=== PATIENT | male | born 1960 | race Caucasian/White ===

== ENCOUNTER 2016-11-12 05:24 | Inpatient (IN) | payer MEDICAID ==
[~2016-11-12] VITALS: Ht 177.8 cm; Wt 92.5 kg
[2016-11-12] MEDS ORDERED: BUSP15 PO (05:42)
[2016-11-12] MEDS ORDERED: ALBU8HFA IH (05:42)
[2016-11-12] MEDS ORDERED: METO25 PO (05:42)
[2016-11-12] MEDS ORDERED: MIRT15 PO (05:42)
[2016-11-12] MEDS ORDERED: INSLAN SQ (05:42)
[2016-11-12] MEDS ORDERED: PARO10TA89 PO (05:42)
[2016-11-12] MEDS ORDERED: ENAL5 PO (05:42)
[2016-11-12 05:43] LABS: GLUCOSE,POINT OF CARE 233 MG/DL (70-110)
[2016-11-12 06:20] LABS: BASOPHILS # (AUTO) 0.02 K/uL (0.00-0.20); BASOPHILS % (AUTO) 0.2 % (0.0-2.0); EOSINOPHILS # (AUTO) 0.02 K/uL (0.00-0.70); EOSINOPHILS % (AUTO) 0.22 % (1.0-6.0); HEMATOCRIT 38.6 % (41-53); HEMOGLOBIN 13.2 g/dL (13.5-17.5); LYMPHOCYTES # (AUTO) 0.9 K/uL (1.0-4.8); LYMPHOCYTES % (AUTO) 8.2 % (22.0-44.0); MEAN CORPUSCULAR HEMOGLOBIN 32.4 pg (26.0-34.0); MEAN CORPUSCULAR HGB CONC 34.2 G/dL (31.0-37.0); MEAN CORPUSCULAR VOLUME 95 fL (80-100); MONOCYTES # (AUTO) 0.5 K/uL (0.1-1.0); MONOCYTES % (AUTO) 4.4 % (2.0-9.0); PLATELET COUNT (AUTO) 260 K/uL (150-450); RED BLOOD CELL COUNT(AUTO) 4.07 MIL/uL (4.50-5.90); RED CELL DISTRIBUTION WIDTH 14.6 % (11.5-14.5); WHITE BLOOD COUNT (AUTO) 10.3 K/uL (4.5-11.0)
[2016-11-12 06:29] LABS: ANION GAP 8 mmol/L (8-16); CALCIUM, TOTAL 8.3 mg/dL (8.8-10.5); CARBON DIOXIDE 27 mmol/L (22-29); CHLORIDE 102 mmol/L (98-107); CREATININE 0.94 mg/dL (0.60-1.30); GLOMERULAR FILTR. RATE CALC > 60 mL/min (>60); POTASSIUM 4.5 mmol/L (3.5-5.1); SODIUM SERUM 137 mmol/L (136-145); UREA NITROGEN, BLOOD 14 mg/dL (7-18)
[2016-11-12 06:35] LABS: ALANINE AMINOTRANSFERASE 30 U/L (12-78); ALBUMIN 3.6 g/dL (3.4-5.0); ASPARTATE AMINOTRANSFERASE 21 U/L (15-37); BILIRUBIN,TOTAL 0.5 mg/dL (0.1-1.0); TOTAL PROTEIN, SERUM 7.1 g/dL (6.4-8.2)
[2016-11-12] MEDS ORDERED: IPRATROPIUM BROMIDE 0.5 MG/2.5 ML NEB SOLUTION NEB ONE (08:15)
[2016-11-12] MEDS ORDERED: ALBUTEROL SULFATE 2.5 MG/0.5 ML NEB SOLUTION NEB ONE (08:15)
[2016-11-12] MEDS ORDERED: ZOLPIDEM TARTRATE 10 MG TABLET PO PRN (08:45)
[2016-11-12] MEDS ORDERED: HALOPERIDOL 5 MG TABLET PO PRN (08:45)
[2016-11-12] MEDS ORDERED: PARoxetine HCL 20 MG TABLET PO SCH (09:00)
[2016-11-12] MEDS: BusPIRone HCL 15 MG TABLET PO SCH ×2 (09:09→23:00)
[2016-11-12 09:50] LABS: CHOL/HDL RATIO 2.1 (4.2-7.3)
[2016-11-12 20:45] VITALS: BP 170/91
[2016-11-12] MEDS: MIRTAZAPINE 15 MG TABLET PO SCH (22:00)
[2016-11-12] MEDS ORDERED: DEXTROSE 50%-WATER 25 GM/50 ML SYRINGE IVP PRN (22:30)
[2016-11-12] MEDS ORDERED: ALBUTEROL SULFATE HFA 90 MCG/PUFF 8 GM INHALER IH PRN (22:30)
[2016-11-13] MEDS: ENALAPRIL MALEATE 5 MG TABLET PO SCH (07:45)
[2016-11-13] MEDS: BusPIRone HCL 15 MG TABLET PO SCH (07:45)
[2016-11-13] MEDS: MetFORMIN HCL 850 MG TABLET PO SCH ×3 (07:45→17:43)
[2016-11-13] MEDS: PARoxetine HCL 10 MG TABLET PO SCH (07:45)
[2016-11-13] MEDS: METOPROLOL TARTRATE 25 MG TABLET PO SCH (07:46)
[2016-11-13] MEDS: NICOTINE 21 MG/24 HOUR PATCH TD SCH (07:47)
[2016-11-13] MEDS ORDERED: PARoxetine HCL 10 MG TABLET PO SCH (09:00)
[2016-11-13] MEDS ORDERED: CloNIDine HCL 0.1 MG TABLET PO PRN (09:30)
[2016-11-13] MEDS ORDERED: DiphenhydrAMINE HCL 25 MG CAPSULE PO PRN (09:30)
[2016-11-13] MEDS: HYDROCORTISONE 0.5% 30 GM CREAM TP SCH (09:45)
[2016-11-13 11:42] LABS: GLUCOSE,POINT OF CARE 214 MG/DL (70-110)
[2016-11-13 11:42] LABS: GLUCOSE,POINT OF CARE 177 MG/DL (70-110)
[2016-11-13 11:52] VITALS: BP 138/76
[2016-11-13] MEDS: INSULIN ASPART 100 UNITS/ML SQ PRN ×2 (12:54→21:08)
[2016-11-13] MEDS: PARoxetine HCL 20 MG TABLET PO SCH (13:11)
[2016-11-13] MEDS: BusPIRone HCL 10 MG TABLET PO SCH (16:52)
[2016-11-13 17:13] LABS: GLUCOSE,POINT OF CARE 143 MG/DL (70-110)
[2016-11-13 17:15] VITALS: BP 146/90
[2016-11-13 18:45] VITALS: BP 139/82
[2016-11-13] MEDS: GABAPENTIN 300 MG CAPSULE PO SCH (18:55)
[2016-11-13] MEDS: MIRTAZAPINE 15 MG TABLET PO SCH (20:39)
[2016-11-13 21:02] LABS: GLUCOSE,POINT OF CARE 150 MG/DL (70-110)
[2016-11-14] MEDS ORDERED: PNEUMOCOCCAL VACCINE POLYVALENT 0.5 ML VIAL [PPSV23] IM ONE (04:30)
[2016-11-14 06:12] LABS: GLUCOSE COMMENT 1 Received Meds; GLUCOSE,POINT OF CARE 166 MG/DL (70-110)
[2016-11-14] MEDS: MetFORMIN HCL 850 MG TABLET PO SCH ×3 (06:23→16:15)
[2016-11-14] MEDS: INSULIN ASPART 100 UNITS/ML SQ PRN ×5 (06:54→20:13)
[2016-11-14 07:32] LABS: HEMOGLOBIN A1C 7.4 % (4.5-6.2)
[2016-11-14 08:05] LABS: THYROID STIMULATING HORMONE 1.14 uIU/mL (0.36-3.74)
[2016-11-14 08:30] VITALS: BP 149/98
[2016-11-14] MEDS: NICOTINE 21 MG/24 HOUR PATCH TD SCH (09:46)
[2016-11-14] MEDS: GABAPENTIN 300 MG CAPSULE PO SCH ×2 (09:46→16:16)
[2016-11-14] MEDS: PARoxetine HCL 10 MG TABLET PO SCH (09:46)
[2016-11-14] MEDS: ENALAPRIL MALEATE 5 MG TABLET PO SCH (09:47)
[2016-11-14] MEDS: METOPROLOL TARTRATE 25 MG TABLET PO SCH (09:47)
[2016-11-14] MEDS: HYDROCORTISONE 0.5% 30 GM CREAM TP SCH ×2 (09:47→16:16)
[2016-11-14] MEDS: PARoxetine HCL 20 MG TABLET PO SCH (10:17)
[2016-11-14] MEDS: BusPIRone HCL 10 MG TABLET PO SCH ×3 (10:17→16:15)
[2016-11-14] MEDS: LORazepam 2 MG TABLET PO PRN (10:18)
[2016-11-14 11:33] LABS: GLUCOSE,POINT OF CARE 143 MG/DL (70-110)
[2016-11-14 15:52] LABS: GLUCOSE COMMENT 1 Received Meds; GLUCOSE,POINT OF CARE 165 MG/DL (70-110)
[2016-11-14 16:28] VITALS: BP 130/85
[2016-11-14] MEDS: MIRTAZAPINE 15 MG TABLET PO SCH (20:04)
[2016-11-14 20:07] LABS: GLUCOSE COMMENT 1 Received Meds; GLUCOSE,POINT OF CARE 168 MG/DL (70-110)
[2016-11-15] MEDS: MetFORMIN HCL 850 MG TABLET PO SCH ×3 (06:05→17:10)
[2016-11-15] MEDS: INSULIN ASPART 100 UNITS/ML SQ PRN ×4 (06:07→21:20)
[2016-11-15 06:12] LABS: GLUCOSE,POINT OF CARE 148 MG/DL (70-110)
[2016-11-15 06:58] VITALS: BP 139/75
[2016-11-15 08:37] VITALS: BP 145/85
[2016-11-15] MEDS: PARoxetine HCL 20 MG TABLET PO SCH (08:56)
[2016-11-15] MEDS: PARoxetine HCL 10 MG TABLET PO SCH (08:57)
[2016-11-15] MEDS: GABAPENTIN 300 MG CAPSULE PO SCH ×2 (08:57→17:11)
[2016-11-15] MEDS: METOPROLOL TARTRATE 25 MG TABLET PO SCH ×2 (08:57→17:10)
[2016-11-15] MEDS: BusPIRone HCL 10 MG TABLET PO SCH ×3 (08:57→17:10)
[2016-11-15] MEDS: NICOTINE 21 MG/24 HOUR PATCH TD SCH (08:58)
[2016-11-15] MEDS: HYDROCORTISONE 0.5% 30 GM CREAM TP SCH ×2 (08:58→17:11)
[2016-11-15] MEDS: ENALAPRIL MALEATE 5 MG TABLET PO SCH (08:58)
[2016-11-15 16:35] VITALS: BP 132/77
[2016-11-15] MEDS ORDERED: ACETAMINOPHEN 325 MG TABLET PO PRN (16:45)
[2016-11-15 17:03] LABS: GLUCOSE,POINT OF CARE 141 MG/DL (70-110)
[2016-11-15 17:03] LABS: GLUCOSE,POINT OF CARE 160 MG/DL (70-110)
[2016-11-15] MEDS: LORazepam 2 MG TABLET PO PRN (17:11)
[2016-11-15] MEDS: MIRTAZAPINE 15 MG TABLET PO SCH (20:24)
[2016-11-15 21:07] LABS: GLUCOSE,POINT OF CARE 159 MG/DL (70-110)
[2016-11-16 00:40] VITALS: BP 123/81
[2016-11-16] MEDS: MetFORMIN HCL 850 MG TABLET PO SCH ×3 (06:39→16:37)
[2016-11-16 06:48] LABS: GLUCOSE,POINT OF CARE 135 MG/DL (70-110)
[2016-11-16 08:05] VITALS: BP 128/66
[2016-11-16] MEDS: NICOTINE 21 MG/24 HOUR PATCH TD SCH (09:09)
[2016-11-16] MEDS: BusPIRone HCL 10 MG TABLET PO SCH ×3 (09:10→16:37)
[2016-11-16] MEDS: GABAPENTIN 300 MG CAPSULE PO SCH ×2 (09:10→16:37)
[2016-11-16] MEDS: ENALAPRIL MALEATE 20 MG TABLET PO SCH (09:11)
[2016-11-16] MEDS: PARoxetine HCL 20 MG TABLET PO SCH (09:11)
[2016-11-16] MEDS: METOPROLOL TARTRATE 25 MG TABLET PO SCH ×2 (09:11→16:37)
[2016-11-16] MEDS: HYDROCORTISONE 0.5% 30 GM CREAM TP SCH ×2 (09:12→17:12)
[2016-11-16] MEDS: LORazepam 2 MG TABLET PO PRN ×2 (11:22→16:37)
[2016-11-16 16:00] VITALS: BP 124/74
[2016-11-16 17:32] LABS: GLUCOSE,POINT OF CARE 129 MG/DL (70-110)
[2016-11-16 17:32] LABS: GLUCOSE,POINT OF CARE 129 MG/DL (70-110)
[2016-11-16 20:37] LABS: GLUCOSE,POINT OF CARE 149 MG/DL (70-110)
[2016-11-16] MEDS: MIRTAZAPINE 15 MG TABLET PO SCH (21:07)
[2016-11-16] MEDS: INSULIN ASPART 100 UNITS/ML SQ PRN (21:17)
[2016-11-17 03:39] VITALS: BP 119/77
[2016-11-17] MEDS: MetFORMIN HCL 850 MG TABLET PO SCH ×3 (06:02→16:40)
[2016-11-17 06:38] LABS: GLUCOSE,POINT OF CARE 155 MG/DL (70-110)
[2016-11-17] MEDS: INSULIN ASPART 100 UNITS/ML SQ PRN ×3 (06:54→16:53)
[2016-11-17] MEDS: PARoxetine HCL 20 MG TABLET PO SCH (09:24)
[2016-11-17] MEDS: BusPIRone HCL 10 MG TABLET PO SCH ×3 (09:24→16:40)
[2016-11-17] MEDS: NICOTINE 21 MG/24 HOUR PATCH TD SCH (09:25)
[2016-11-17] MEDS: HYDROCORTISONE 0.5% 30 GM CREAM TP SCH ×2 (09:25→16:40)
[2016-11-17] MEDS: ENALAPRIL MALEATE 20 MG TABLET PO SCH (09:25)
[2016-11-17] MEDS: METOPROLOL TARTRATE 25 MG TABLET PO SCH ×2 (09:25→16:40)
[2016-11-17] MEDS: GABAPENTIN 300 MG CAPSULE PO SCH ×2 (09:25→16:40)
[2016-11-17 11:07] LABS: GLUCOSE,POINT OF CARE 165 MG/DL (70-110)
[2016-11-17 12:55] VITALS: BP 128/70
[2016-11-17] MEDS ORDERED: METF850T2 PO (16:09)
[2016-11-17] MEDS ORDERED: MIRT15 PO (16:09)
[2016-11-17] MEDS ORDERED: BUSP10TA23 PO (16:09)
[2016-11-17] MEDS ORDERED: ENAL20 PO (16:09)
[2016-11-17] MEDS ORDERED: GABA-531 PO (16:09)
[2016-11-17] MEDS ORDERED: METO25 PO (16:09)
[2016-11-17] MEDS ORDERED: PARO20TA24 PO (16:09)
[2016-11-17 16:29] VITALS: BP 134/82
[2016-11-17 16:47] LABS: GLUCOSE,POINT OF CARE 206 MG/DL (70-110)
== END 2016-11-17 17:35 | disposition home or self-care (01) | DRG 751 ==
LOC: EMS 05:26 → AHU 20:31 → B2S 11-13 18:05
DX: F33.2 Major depressive disorder, recurrent severe without psychotic features (principal); E11.42 Type 2 diabetes mellitus with diabetic polyneuropathy; R45.851 Suicidal ideations; E11.65 Type 2 diabetes mellitus with hyperglycemia; Z28.21 Immunization not carried out because of patient refusal; E83.51 Hypocalcemia; F12.10 Cannabis abuse, uncomplicated; F15.10 Other stimulant abuse, uncomplicated; F17.200 Nicotine dependence, unspecified, uncomplicated; G47.00 Insomnia, unspecified; I10 Essential (primary) hypertension; J44.9 Chronic obstructive pulmonary disease, unspecified; K21.9 Gastro-esophageal reflux disease without esophagitis; K59.00 Constipation, unspecified; F11.90 Opioid use, unspecified, uncomplicated; Z71.51 Drug abuse counseling and surveillance of drug abuser; Z71.6 Tobacco abuse counseling; Z56.0 Unemployment, unspecified
CPT/HCPCS: 82306; 82962; 83036; 84439; 84443; 94640; 99285; G0480; J3535

== ENCOUNTER 2016-12-20 06:54 | Inpatient (IN) | payer MEDICAID ==
[~2016-12-20] VITALS: Ht 177.8 cm; Wt 88.2 kg
[~2016-12-20 06:54] MED LIST: BUSP10TA23 PO; ENAL20 PO; GABA-531 PO; METF850T2 PO; METO25 PO; MIRT15 PO; PARO20TA24 PO
[2016-12-20 07:08] LABS: GLUCOSE,POINT OF CARE 135 MG/DL (70-110)
[2016-12-20 07:59] LABS: BASOPHILS # (AUTO) 0.01 K/uL (0.00-0.20); BASOPHILS % (AUTO) 0.1 % (0.0-2.0); EOSINOPHILS # (AUTO) 0.03 K/uL (0.00-0.70); EOSINOPHILS % (AUTO) 0.22 % (1.0-6.0); HEMATOCRIT 37.9 % (41-53); HEMOGLOBIN 12.8 g/dL (13.5-17.5); LYMPHOCYTES # (AUTO) 0.5 K/uL (1.0-4.8); LYMPHOCYTES % (AUTO) 4.3 % (22.0-44.0); MEAN CORPUSCULAR HGB CONC 33.9 G/dL (31.0-37.0); MEAN CORPUSCULAR VOLUME 98 fL (80-100); MONOCYTES % (AUTO) 8.5 % (2.0-9.0); NEUTROPHILS # (AUTO) 9.8 K/uL (1.8-7.7); PLATELET COUNT (AUTO) 321 K/uL (150-450); RED BLOOD CELL COUNT(AUTO) 3.89 MIL/uL (4.50-5.90); RED CELL DISTRIBUTION WIDTH 15.4 % (11.5-14.5); WHITE BLOOD COUNT (AUTO) 11.3 K/uL (4.5-11.0)
[2016-12-20 08:00] LABS: NEUTROPHILS % (AUTO) 86.9 % (40.0-70.0); RBC MORPHOLOGY COMMENT NORMAL RBC MORPH
[2016-12-20 08:15] LABS: ANION GAP 13 mmol/L (8-16); CALCIUM, TOTAL 8.5 mg/dL (8.8-10.5); CARBON DIOXIDE 23 mmol/L (22-29); CHLORIDE 100 mmol/L (98-107); CREATININE 0.95 mg/dL (0.60-1.30); GLOMERULAR FILTR. RATE CALC > 60 mL/min (>60); POTASSIUM 4.4 mmol/L (3.5-5.1); SODIUM SERUM 136 mmol/L (136-145); UREA NITROGEN, BLOOD 20 mg/dL (7-18)
[2016-12-20 08:21] LABS: ALANINE AMINOTRANSFERASE 77 U/L (12-78); ALBUMIN 3.6 g/dL (3.4-5.0); ASPARTATE AMINOTRANSFERASE 59 U/L (15-37); BILIRUBIN,TOTAL 0.6 mg/dL (0.1-1.0); TOTAL PROTEIN, SERUM 7.4 g/dL (6.4-8.2)
[2016-12-20] MEDS ORDERED: LORazepam 2 MG TABLET PO PRN (11:00)
[2016-12-20] MEDS ORDERED: ZOLPIDEM TARTRATE 10 MG TABLET PO PRN (11:00)
[2016-12-20] MEDS ORDERED: HALOPERIDOL 5 MG TABLET PO PRN (11:00)
[2016-12-20] MEDS ORDERED: HYDROCODONE/ACETAMINOPHEN 5-325 MG TABLET PO ONE (11:30)
[2016-12-20 14:39] VITALS: BP 147/86
[2016-12-20 14:52] LABS: GLUCOSE,POINT OF CARE 117 MG/DL (70-110)
[2016-12-20 15:08] VITALS: BP 147/86
[2016-12-20] MEDS ORDERED: AmLODIPine BESYLATE 5 MG TABLET PO SCH (15:15)
[2016-12-20] MEDS ORDERED: HydrOXYzine PAMOATE 50 MG CAPSULE PO PRN (15:15)
[2016-12-20] MEDS ORDERED: GuaiFENesin/D-METHORPHAN [SUGAR-FREE] 200-20MG/10 ML SYRUP UDCUP PO PRN (15:15)
[2016-12-20] MEDS ORDERED: CYANOCOBALAMIN 1,000 MCG/ML VIAL IM ONE (15:15)
[2016-12-20] MEDS ORDERED: GLUCAGON,HUMAN RECOMBINANT 1 MG VIAL IM PRN (15:45)
[2016-12-20] MEDS ORDERED: PNEUMOCOCCAL VACCINE POLYVALENT 0.5 ML VIAL [PPSV23] IM ONE (15:45)
[2016-12-20 16:30] VITALS: BP 132/85
[2016-12-20] MEDS: MULTIVITAMINS WITH MINERALS, THERAPEUTIC TABLET PO SCH (16:45)
[2016-12-20] MEDS: FOLIC ACID 1 MG TABLET PO SCH (16:45)
[2016-12-20] MEDS: METOPROLOL TARTRATE 25 MG TABLET PO SCH (16:45)
[2016-12-20] MEDS: NICOTINE 21 MG/24 HOUR PATCH TD SCH (16:46)
[2016-12-20] MEDS: THIAMINE HCL 100 MG TABLET PO SCH (16:46)
[2016-12-20] MEDS: LORazepam 2 MG TABLET PO PRN ×2 (16:59→21:13)
[2016-12-20] MEDS: MetFORMIN HCL 850 MG TABLET PO SCH (17:00)
[2016-12-20 17:12] LABS: GLUCOSE,POINT OF CARE 136 MG/DL (70-110)
[2016-12-20 17:30] VITALS: BP 119/74
[2016-12-20] MEDS: LOPERAMIDE HCL 2 MG CAPSULE PO PRN (18:16)
[2016-12-20 21:10] VITALS: BP 132/67
[2016-12-20] MEDS: ACETAMINOPHEN 325 MG TABLET PO PRN (21:12)
[2016-12-20 22:05] VITALS: BP 136/76
[2016-12-21] VITALS (9 sets, daily range): BP systolic 113–140; BP diastolic 60–77
[2016-12-21] MEDS: LOPERAMIDE HCL 2 MG CAPSULE PO PRN ×2 (00:54→12:13)
[2016-12-21] MEDS ORDERED: LORazepam 2 MG TABLET PO PRN (07:00)
[2016-12-21] MEDS: MetFORMIN HCL 850 MG TABLET PO SCH ×3 (07:06→16:53)
[2016-12-21 07:23] LABS: GLUCOSE,POINT OF CARE 179 MG/DL (70-110)
[2016-12-21] MEDS: METOPROLOL TARTRATE 25 MG TABLET PO SCH ×2 (09:06→16:53)
[2016-12-21] MEDS: LORazepam 2 MG TABLET PO SCH ×2 (09:06→12:38)
[2016-12-21] MEDS: ENALAPRIL MALEATE 20 MG TABLET PO SCH (09:06)
[2016-12-21] MEDS: MULTIVITAMINS WITH MINERALS, THERAPEUTIC TABLET PO SCH (09:06)
[2016-12-21] MEDS: NICOTINE 21 MG/24 HOUR PATCH TD SCH (09:06)
[2016-12-21] MEDS: FOLIC ACID 1 MG TABLET PO SCH (09:06)
[2016-12-21] MEDS: THIAMINE HCL 100 MG TABLET PO SCH ×2 (09:06→16:53)
[2016-12-21 09:08] LABS: CHOL/HDL RATIO 1.4 (4.2-7.3)
[2016-12-21] MEDS: PARoxetine HCL 20 MG TABLET PO SCH (10:47)
[2016-12-21] MEDS: ACETAMINOPHEN 325 MG TABLET PO PRN (12:38)
[2016-12-21] MEDS: BusPIRone HCL 10 MG TABLET PO SCH ×2 (12:38→16:53)
[2016-12-21] MEDS ORDERED: DOCUSATE SODIUM 100 MG CAPSULE PO PRN (16:15)
[2016-12-21] MEDS ORDERED: ALBUTEROL SULFATE HFA 90 MCG/PUFF 8 GM INHALER IH PRN (16:15)
[2016-12-21] MEDS ORDERED: ACETAMINOPHEN 325 MG TABLET PO PRN (16:15)
[2016-12-21] MEDS ORDERED: IBUPROFEN 400 MG TABLET PO PRN (16:15)
[2016-12-21 16:47] LABS: GLUCOSE,POINT OF CARE 185 MG/DL (70-110)
[2016-12-21] MEDS: GABAPENTIN 300 MG CAPSULE PO SCH (16:53)
[2016-12-22 00:35] VITALS: BP 118/67
[2016-12-22 00:36] VITALS: BP 118/67
[2016-12-22] MEDS: LOPERAMIDE HCL 2 MG CAPSULE PO PRN ×2 (02:25→09:19)
[2016-12-22] MEDS: MetFORMIN HCL 850 MG TABLET PO SCH ×3 (06:33→16:28)
[2016-12-22 06:52] LABS: GLUCOSE,POINT OF CARE 152 MG/DL (70-110)
[2016-12-22] MEDS ORDERED: LORazepam 2 MG TABLET PO PRN (07:00)
[2016-12-22 08:14] LABS: CHOL/HDL RATIO 1.6 (4.2-7.3)
[2016-12-22 08:43] VITALS: BP 111/61
[2016-12-22] MEDS: GABAPENTIN 300 MG CAPSULE PO SCH ×2 (09:15→16:27)
[2016-12-22] MEDS: BusPIRone HCL 10 MG TABLET PO SCH ×3 (09:15→16:27)
[2016-12-22] MEDS: FOLIC ACID 1 MG TABLET PO SCH (09:18)
[2016-12-22] MEDS: MULTIVITAMINS WITH MINERALS, THERAPEUTIC TABLET PO SCH (09:18)
[2016-12-22] MEDS: PARoxetine HCL 20 MG TABLET PO SCH (09:18)
[2016-12-22] MEDS: ENALAPRIL MALEATE 20 MG TABLET PO SCH (09:19)
[2016-12-22] MEDS: METOPROLOL TARTRATE 25 MG TABLET PO SCH ×2 (09:19→16:27)
[2016-12-22] MEDS: LORazepam 2 MG TABLET PO SCH ×4 (09:19→20:15)
[2016-12-22] MEDS: THIAMINE HCL 100 MG TABLET PO SCH ×2 (09:19→16:28)
[2016-12-22] MEDS: NICOTINE 21 MG/24 HOUR PATCH TD SCH (09:20)
[2016-12-22 10:40] VITALS: BP 107/69
[2016-12-22] MEDS: MetroNIDAZOLE 500 MG TABLET PO SCH (16:27)
[2016-12-22 16:41] VITALS: BP 129/62
[2016-12-22 17:07] LABS: GLUCOSE,POINT OF CARE 218 MG/DL (70-110)
[2016-12-22 22:40] VITALS: BP 130/73
[2016-12-22] MEDS: ACETAMINOPHEN 325 MG TABLET PO PRN (22:43)
[2016-12-23] MEDS: MetroNIDAZOLE 500 MG TABLET PO SCH ×3 (00:29→16:28)
[2016-12-23 00:40] VITALS: BP 131/78
[2016-12-23] MEDS: LOPERAMIDE HCL 2 MG CAPSULE PO PRN (00:44)
[2016-12-23] MEDS: INSULIN ASPART 100 UNITS/ML SQ PRN ×2 (06:43→17:07)
[2016-12-23] MEDS ORDERED: LORazepam 1 MG TABLET PO PRN (07:00)
[2016-12-23] MEDS: MetFORMIN HCL 850 MG TABLET PO SCH ×3 (07:23→16:28)
[2016-12-23] MEDS: GABAPENTIN 300 MG CAPSULE PO SCH ×2 (08:58→16:28)
[2016-12-23] MEDS: PARoxetine HCL 20 MG TABLET PO SCH (08:58)
[2016-12-23] MEDS: ENALAPRIL MALEATE 20 MG TABLET PO SCH (08:58)
[2016-12-23] MEDS: BusPIRone HCL 10 MG TABLET PO SCH ×3 (08:58→16:28)
[2016-12-23] MEDS: METOPROLOL TARTRATE 25 MG TABLET PO SCH ×2 (08:59→16:29)
[2016-12-23] MEDS: NICOTINE 21 MG/24 HOUR PATCH TD SCH (08:59)
[2016-12-23] MEDS: MULTIVITAMINS WITH MINERALS, THERAPEUTIC TABLET PO SCH (08:59)
[2016-12-23] MEDS: LORazepam 2 MG TABLET PO SCH ×4 (08:59→20:33)
[2016-12-23] MEDS: THIAMINE HCL 100 MG TABLET PO SCH ×2 (08:59→16:28)
[2016-12-23] MEDS: FOLIC ACID 1 MG TABLET PO SCH (08:59)
[2016-12-23 09:00] VITALS: BP 133/78
[2016-12-23] MEDS ORDERED: LORazepam 1 MG TABLET PO SCH (09:00)
[2016-12-23 11:47] LABS: GLUCOSE,POINT OF CARE 191 MG/DL (70-110)
[2016-12-23 16:21] VITALS: BP 116/68
[2016-12-23 16:49] VITALS: BP 116/68
[2016-12-23 19:45] LABS: GLUCOSE,POINT OF CARE 205 MG/DL (70-110)
[2016-12-24 01:29] VITALS: BP 124/72
[2016-12-24] MEDS: MetFORMIN HCL 850 MG TABLET PO SCH ×2 (06:36→12:11)
[2016-12-24] MEDS: INSULIN ASPART 100 UNITS/ML SQ PRN (06:55)
[2016-12-24] MEDS ORDERED: LORazepam 1 MG TABLET PO PRN ×2 (07:00)
[2016-12-24] MEDS: MetroNIDAZOLE 500 MG TABLET PO SCH ×2 (08:36)
[2016-12-24] MEDS: FOLIC ACID 1 MG TABLET PO SCH (09:04)
[2016-12-24] MEDS: THIAMINE HCL 100 MG TABLET PO SCH (09:05)
[2016-12-24] MEDS: ENALAPRIL MALEATE 20 MG TABLET PO SCH (09:05)
[2016-12-24] MEDS: BusPIRone HCL 10 MG TABLET PO SCH ×2 (09:05→12:31)
[2016-12-24] MEDS: MULTIVITAMINS WITH MINERALS, THERAPEUTIC TABLET PO SCH (09:05)
[2016-12-24] MEDS: PARoxetine HCL 20 MG TABLET PO SCH (09:05)
[2016-12-24] MEDS: NICOTINE 21 MG/24 HOUR PATCH TD SCH (09:05)
[2016-12-24] MEDS: LORazepam 1 MG TABLET PO SCH ×2 (09:06→12:31)
[2016-12-24] MEDS: METOPROLOL TARTRATE 25 MG TABLET PO SCH (09:06)
[2016-12-24] MEDS: GABAPENTIN 300 MG CAPSULE PO SCH (09:06)
[2016-12-24 09:12] VITALS: BP 131/74
[2016-12-24] MEDS ORDERED: BUSP15 PO (11:06)
[2016-12-24] MEDS ORDERED: METF850T2 PO (11:06)
[2016-12-24] MEDS ORDERED: METR500 PO (11:06)
[2016-12-24] MEDS ORDERED: METO25 PO (11:06)
[2016-12-24] MEDS ORDERED: PARO20TA24 PO (11:06)
[2016-12-24] MEDS ORDERED: GABA-531 PO (11:06)
[2016-12-24 11:21] LABS: GLUCOSE,POINT OF CARE 176 MG/DL (70-110)
[2016-12-24 11:21] LABS: GLUCOSE,POINT OF CARE 162 MG/DL (70-110)
[2016-12-24] MEDS: ACETAMINOPHEN 325 MG TABLET PO PRN (12:33)
[2016-12-25] MEDS ORDERED: LORazepam 1 MG TABLET PO PRN (07:00)
== END 2016-12-24 13:00 | disposition home or self-care (01) | DRG 751 ==
LOC: EMS 06:55 → AHU 10:26 → B2S 11:35
DX: F33.2 Major depressive disorder, recurrent severe without psychotic features (principal); R45.851 Suicidal ideations; E11.9 Type 2 diabetes mellitus without complications; F25.9 Schizoaffective disorder, unspecified; I10 Essential (primary) hypertension; J45.909 Unspecified asthma, uncomplicated; F19.10 Other psychoactive substance abuse, uncomplicated; F17.210 Nicotine dependence, cigarettes, uncomplicated; F41.9 Anxiety disorder, unspecified; F10.20 Alcohol dependence, uncomplicated; Z71.6 Tobacco abuse counseling; Z79.84 Long term (current) use of oral hypoglycemic drugs; Z79.899 Other long term (current) drug therapy; Z28.21 Immunization not carried out because of patient refusal; Z91.81 History of falling
CPT/HCPCS: 73502; 82962; 83036; 87045; 99285; G0480; J3420